=== PATIENT | female | born 1945 | race African-American/Black ===

== ENCOUNTER → 2016-07-14 | Outpatient (CLI) | payer MEDICARE ==
[~2016-07-14] MED LIST: ALDACTONE 25MG25 M1 PO; ASPIRIN E.C. 8181 MG PO; EPA/GLA1 SGL PO; FOSAMAX 70MG TA70 MG PO; INDERAL 20MG20 MG PO; MIRALAX PA17 GM/Dose PO; OSTEO-BI-FLEX 21 TAB PO; STOOL SOFTENER100 M2 PO; VITAMIN B COMPL1 SGL PO; VITAMIN D 400400 IU PO
== END ==
LOC: MC.RAD 11:18
DX: Z12.31 Encounter for screening mammogram for malignant neoplasm of breast (principal)

== ENCOUNTER → 2017-07-16 | Outpatient (CLI) | payer MEDICARE | LOC: MC.RAD 09:28 | DX: Z12.31 Encounter for screening mammogram for malignant neoplasm of breast (principal) ==

== ENCOUNTER → 2018-07-19 | Outpatient (CLI) | payer MEDICARE | LOC: MC.RAD 10:05 | DX: Z12.31 Encounter for screening mammogram for malignant neoplasm of breast (principal); Z85.3 Personal history of malignant neoplasm of breast ==

== ENCOUNTER → 2019-09-02 | Outpatient (CLI) | payer MEDICARE | LOC: MC.RAD 10:37 | DX: Z12.31 Encounter for screening mammogram for malignant neoplasm of breast (principal); Z98.890 Other specified postprocedural states; Z92.3 Personal history of irradiation; C50.512 Malignant neoplasm of lower-outer quadrant of left female breast ==

== ENCOUNTER → 2021-03-10 | Outpatient (CLI) | payer MEDICARE | LOC: MC.RAD 10:30 | DX: Z12.31 Encounter for screening mammogram for malignant neoplasm of breast (principal); Z85.3 Personal history of malignant neoplasm of breast ==

== ENCOUNTER → 2021-11-23 | Outpatient (CLI) | payer MEDICARE | LOC: COL.RAD 12:28 | DX: D32.0 Benign neoplasm of cerebral meninges (principal) | CPT/HCPCS: A9575 ==